=== PATIENT | male | born 1950 | race Caucasian/White ===

== ENCOUNTER 2017-07-15 12:48 | Emergency (ER) | payer OTHER, MEDICARE ==
[~2017-07-15] VITALS: Ht 185.4 cm; Wt 100.0 kg
[2017-07-15 12:51] VITALS: BP 204/97; PULSE 97; RESP 15; TEMP 98.4; O2SAT 98
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
[2017-07-15] MEDS ORDERED: LIDOCAINE HCL 1% 50 ML VIAL INFIL ONE (13:30)
[2017-07-15] MEDS ORDERED: TETANUS/DIPHTHERIA TOXOID ADULT 0.5 ML VIAL IM ONE (13:30)
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
[2017-07-15 15:20] VITALS: BP 162/87
== END 2017-07-15 15:21 | disposition home or self-care (01) ==
LOC: NEPE 12:48
DX: S01.112A Laceration without foreign body of left eyelid and periocular area, initial encounter (principal); W22.8XXA Striking against or struck by other objects, initial encounter; Y99.0 Civilian activity done for income or pay; Z23 Encounter for immunization; Z88.0 Allergy status to penicillin
CPT/HCPCS: 12013; 70450; 90471; 90714